=== PATIENT | male | born 1960 | race Two or more races ===

== ENCOUNTER 2024-05-10 08:17 | Emergency (ER) | payer MEDICAID, SELFPAY ==
[~2024-05-10] VITALS: Ht 170.2 cm; Wt 77.0 kg
[~2024-05-10 08:17] MED LIST: IBUP-1492 PO
[2024-05-10 08:24] VITALS: BP 126/69; PULSE 70; RESP 16; TEMP 98.5; O2SAT 99
== END 2024-05-10 10:19 | disposition home or self-care (01) ==
LOC: EMS 08:17
DX: Z46.6 Encounter for fitting and adjustment of urinary device (principal)
CPT/HCPCS: 99281; Z7502